=== PATIENT | male | born 1990 | race Caucasian/White ===

== ENCOUNTER 2023-01-06 14:20 | Inpatient (IN) | payer OTHER, SELFPAY ==
[2023-01-06 14:35] VITALS: BP 126/75; PULSE 64; TEMP 36.1; O2SAT 99
[2023-01-06 16:18] VITALS: BMI 33.9
[2023-01-06] MEDS: Nicotine Polacrilex Lozenge 4 MG LOZENGE BUCCAL ×2 (17:59→20:43)
--- NOTE | 2023-01-06 18:01 | PC.ADMIT ---
Addendum entered by Sandra Salinas RN 01/06/23 18:12: Pt med rec is done. Original Note: Pt is a 32 year old male who presented to [facility] ED secondary to increased depression over the last 2 months. Pt is COVID negative, UTOX negative. 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 Pt has increased SI and has had a previous attempt by OD. Reports an IPLOC at [facility]. Pt reports his father by suicide when pt had finished nursing school. Pt reports when he is experiencing thoughts of SI they are usually caused by a snowball effect of his anxiety and depression increasing. Pt states when he has thoughts of SI it starts as thoughts of wanting to go to bed and not wake up and then as he sits and ruminates the thoughts become more intense like ideas to drive into a tree. Pt is looking to get medication adjustments as he feels his current regimen isn't working. Pt lives with his girlfriend and their daughter. Pt identifies family as an important reason not to by suicide. Pt is A+OX4. Pt vitals upon arrival are temp 97, Sp02 98% R.A, HR 64, BP 126/75. Pt denies Hi/AH/VH but reports passive SI. Pt has high anxiety and depression. Pt is polite, calm, and cooperative. Pt reports he can come to staff and he is safe on the unit. Provider notified, orders are placed. Monitor for safety and begin treatment plan.
[2023-01-06] MEDS: DULoxetine HCl 20 MG CAPSULE.DR PO (20:00)
[2023-01-06] MEDS: traZODone HCL 50 MG TABLET PO (20:00)
[2023-01-06] MEDS: hydrOXYzine HCL 25 MG TABLET PO (20:43)
[2023-01-07 07:00] VITALS: BMI 32.1
[2023-01-07] MEDS: DULoxetine HCl 20 MG CAPSULE.DR PO (08:55)
[2023-01-07] MEDS: Cholecalciferol (Vitamin D3) 10 MCG TABLET 20 MCG PO (08:55)
[2023-01-07 09:03] VITALS: BP 125/81; PULSE 93; RESP 18; O2SAT 99
[2023-01-07] MEDS: Nicotine Polacrilex Lozenge 4 MG LOZENGE BUCCAL ×4 (09:03→19:14)
[2023-01-07 09:44] LABS: Cholesterol 179 mg/dL; HDL Cholesterol 35 mg/dL; LDL Cholesterol Calculated 99 mg/dl; Magnesium 2.2 mg/dL (1.6-2.6); Triglycerides 229 mg/dL
[2023-01-07 09:48] LABS: Free T4 (Free Thyroxine) 0.83 ng/dL (0.71-1.85); Thyroid Stimulating Hormone 3.21 uIU/mL (0.32-4.0)
[2023-01-07 09:57] LABS: Folate 8.3 ng/mL (> or = 4.0); Vitamin B12 558 pg/mL (200-900)
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
[2023-01-07 10:42] LABS: Estimated Average Glucose 105 mg/dL; Hemoglobin A1C 149.6057 umol/L; Hemoglobin A1c % 5.3 %
--- NOTE | 2023-01-07 11:13 | HO.PM.IMCN ---
History of Present Illness Data of Consult Service Date: 01/07/23 Primary Care Provider: Nonstaff Physician FELIPE Reason for consult: Admission H&P Pt is a 32-year-old male with a PMH significant for?chronic eustachian tube dysfunction, right hip labrum repair surgery, anxiety, and depression who is admitted to [facility] psychiatry unit for increasing depression past 2 months with increasing SI a previous suicide attempt by overdosing. Medical consult for admission H&P. ?Patient states that he has had chronic ear problems since a child when he had multiple ear tube placements for eustachian tube dysfunction. Patient has had since then had occasional ear pain and muffled hearing, no worse lately than the past few years. Pt also states has occasional chest pain/palpitations associated with anxiety. Pt has been to the ED multiple times for this pain, cardiac workup has always been negative. Pt has no chest pain at the moment. The patient currently denies any acute medical concerns at this time. No chest pain/pressure, palpitations. Denies shortness of breath. No fever, chills, nausea, vomiting, diarrhea. Labs reviewed, unremarkable. Review of Systems Review of Systems: Chronic ear problems/muffled hearing Denies chest pain/pressure, palpitations No shortness of breath Denies fever, chills, nausea, vomiting, diarrhea, abdominal pain Yes all other systems are reviewed and are negative [facility] Social History Household Members Other:: girlfriend and daughter. Owns duplex and has someone living there. Housing: House Do you presently have visiting nurse or other home services: No Patient Tobacco Use Status: Current everyday Tobacco user Tobacco use type: Cigarette Cigarette Packs Per Day: 1 Cigarettes Per Day: 20.0 Smoked in Last 30 Days: Yes e-Cigarette/Vaping Use: Never Used Patient Interested in Nicotine Replacement: Yes (4 mg lozenge) Patient Given Instructions on How to Stop Smoking: No Second Hand Smoke Exposure: No Use of substances other than those prescribed or required for medical reasons: No Currently Displaying Signs/Symptoms of Drug Intoxication Withdrawal: No Have you been hit, kicked, punched, or otherwise hurt by someone within the past year? If so, by whom?: No Do you feel safe in your current relationship?: Yes Is there a partner from a previous relationship who is making you feel unsafe now?: No Are you made to feel afraid or neglected: No Advance Directives: No Advance Directives Information Provided: Yes Suicidal Behavior: History of suicide attemps Current/Past Psychiatric Disorders: Mood disorder Rosado Symptoms: Anxiety and Hopelessness Family History: Attempts and Suicide Access to Firearms: No Do you have thoughts of harming others: None Do you have a plan to hurt others: No Plan Recently lost weight without trying: No Nutrition Risks: No Nutritional Risk Poor oral hygiene: No Meds Allergies Allergy/AdvReac Type Severity Reaction Status Date / Time No Known Allergies Allergy Verified 01/06/23 14:12 Active Medications: Current Medications Acetaminophen (Acetaminophen 325 Mg Tablet) 650 mg PO Q6H PRN PRN Reason: Headache/Pain Mild Scale (1-3) Al Hydroxide/Mg Hydroxide (Magnesium Hydrox/Alum Hydrox 30 Ml Oral.Susp) 30 ml PO Q6H PRN PRN Reason: Heartburn/Nausea Duloxetine HCl (Duloxetine Hcl 20 Mg Capsule.Dr) 20 mg PO BID [facility] Last Admin: 01/07/23 08:55 Dose: 20 mg Gabapentin (Gabapentin 100 Mg Capsule) 200 mg PO TID PRN PRN Reason: anxiety Hydroxyzine HCl (Hydroxyzine Hcl 25 Mg Tablet) 25 mg PO Q6H PRN PRN Reason: Anxiety Last Admin: 01/06/23 20:43 Dose: 25 mg Ibuprofen (Ibuprofen 800 Mg Tablet) 800 mg PO Q8H PRN PRN Reason: Pain, Mild (Pain Scale 1-3) Magnesium Hydroxide (Milk Of Magnesia 30 Ml Oral.Susp) 30 ml PO DAILY PRN PRN Reason: Constipation Nicotine Polacrilex (Nicotine Polacrilex Lozenge 4 Mg Lozenge) 4 mg BUCCAL Q2H PRN PRN Reason: Nicotine Cravings Last Admin: 01/07/23 09:03 Dose: 4 mg Trazodone HCl (Trazodone Hcl 50 Mg Tablet) 50 mg PO BEDTIME MRX1 PRN PRN Reason: Insomnia Last Admin: 01/06/23 20:00 Dose: 50 mg Vitamin D (Cholecalciferol (Vitamin D3) 10 Mcg Tablet) 20 mcg PO DAILY [facility] Last Admin: 01/07/23 08:55 Dose: 20 mcg Home Medications Medication Instructions Recorded Confirmed Last Taken Type duloxetine 20 mg capsule,delayed 20 mg PO BID 01/06/23 01/06/23 Unknown History release duloxetine 20 mg capsule,delayed 20 mg PO BID 01/06/23 01/06/23 Unknown History release gabapentin 100 mg capsule 100 mg PO TID PRN Anxiety 01/06/23 01/06/23 Unknown History gabapentin 100 mg capsule 100 mg PO TID PRN Anxiety 01/06/23 01/06/23 Unknown History Physical Exam Vital Signs and Narrative: Vital Signs: Last Vital Signs Temp 97 F 01/06/23 14:35 Pulse 93 01/07/23 09:03 Resp 18 01/07/23 09:03 BP 125/81 01/07/23 09:03 Pulse Ox 99 01/07/23 09:03 O2 Del Method Room Air 01/07/23 09:03 BMI result Body Mass Index 32.1 Constitutional: Alert, in no acute distress. Mental Status: Oriented to person, place and time. Eyes: Pupils are equal, round, and reactive to light. Ear, Nose, and Throat: Oropharynx clear, mucous membranes moist. Ears and nose without deformities. Trachea midline. Respiratory: Clear to auscultation bilaterally. No wheezing, rales, or rhonchi. Cardiovascular: S1, S2 regular. No murmurs, rubs, or gallops. Gastrointestinal: Abdomen soft, non-tender, non-distended. Normal bowel sounds. Neurologic: Cranial nerves II-XII are grossly intact bilaterally. No focal neurological deficits. Moves all extremities spontaneously. Skin: No rashes or lesions noted. Musculoskeletal: No cyanosis or clubbing. Extremities: No edema. Psychiatric: Normal mood and affect. Results Labs Labs: Laboratory Results - last 24 hr 01/07/23 01/07/23 01/07/23 08:31 08:31 08:31 Estimat Average Glucose 105 Hemoglobin A1c % 5.3 Magnesium 2.2 Triglycerides 229 Cholesterol 179 LDL Cholesterol, Calc 99 HDL Cholesterol 35 Vitamin B12 558 Folate 8.3 TSH 3.21 Free T4 0.83 Assessment and Plan (1) Routine history and physical examination of adult: Status: Acute Plan Pt is a 32-year-old male with a PMH significant for?chronic eustachian tube dysfunction, right hip labrum repair surgery, anxiety, and depression who is admitted to psychiatry unit for increasing depression past 2 months with increasing SI a previous suicide attempt by overdosing. Medical consult for admission H&P. ? Mood disorder Plan as per psychiatry Chronic eustachian tube dysfunction/muffled hearing Has been stable for years now Patient should follow-up with PCP and ENT outpatient for continued care Thank you for allowing us to participate in the care of this patient. Signing off at this time. Please let us know if there are any acute complaints or questions. Time Spent With Patient Time: Total time managing care of this patient today ____ minutes.
[2023-01-07] MEDS: Ibuprofen 800 MG TABLET PO (11:46)
[2023-01-07] MEDS: FLUoxetine HCl 10 MG CAPSULE PO (13:18)
[2023-01-07 18:00] VITALS: BP 122/75; PULSE 78; RESP 16; TEMP 36.1; O2SAT 98
[2023-01-07] MEDS: traZODone HCL 50 MG TABLET PO (21:26)
--- NOTE | 2023-01-08 | ECG_ITS ---
Test Reason : tachycardia Blood Pressure : / mmHG Vent. Rate : 095 BPM Atrial Rate : 095 BPM P-R Int : 168 ms QRS Dur : 108 ms QT Int : 330 ms P-R-T Axes : 053 001 053 degrees QTc Int : 414 ms Normal sinus rhythm Normal ECG No previous ECGs available Referred By: Venus Correa Electronically Signed By:NICOLETTE HERNANDEZ
[2023-01-08] MEDS: Cholecalciferol (Vitamin D3) 10 MCG TABLET 20 MCG PO (08:08)
[2023-01-08] MEDS: FLUoxetine HCl 10 MG CAPSULE PO (08:08)
[2023-01-08] MEDS: DULoxetine HCl 20 MG CAPSULE.DR PO (08:09)
[2023-01-08 08:12] VITALS: BP 156/106; PULSE 82; RESP 18; TEMP 36.4; O2SAT 99
[2023-01-08] MEDS: Nicotine Polacrilex Lozenge 4 MG LOZENGE BUCCAL ×4 (08:30→18:04)
[2023-01-08] MEDS: cloNIDine HCL 0.1 MG TABLET PO ×2 (08:59→19:46)
[2023-01-08 09:01] VITALS: BP 123/62; PULSE 133
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
[2023-01-08 09:55] VITALS: BP 123/82; PULSE 118
[2023-01-08 10:00] VITALS: BP 151/118; PULSE 125
[2023-01-08 17:54] VITALS: BP 128/82; PULSE 113; RESP 16; TEMP 35.9; O2SAT 98
[2023-01-08] MEDS: traZODone HCL 50 MG TABLET PO (19:46)
[2023-01-08] MEDS: Ibuprofen 800 MG TABLET PO (20:32)
[2023-01-09] MEDS: Nicotine Polacrilex Lozenge 4 MG LOZENGE BUCCAL ×5 (04:23→18:37)
[2023-01-09] MEDS: cloNIDine HCL 0.1 MG TABLET PO ×2 (08:07→20:00)
[2023-01-09] MEDS: Cholecalciferol (Vitamin D3) 10 MCG TABLET 20 MCG PO (08:07)
[2023-01-09] MEDS: FLUoxetine HCl 20 MG CAPSULE PO (08:07)
[2023-01-09 08:15] VITALS: BP 128/64; PULSE 60; RESP 16; TEMP 36; O2SAT 99
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
[2023-01-09] MEDS: Acetaminophen 325 MG TABLET 650 MG PO (17:13)
[2023-01-09 19:58] VITALS: BP 120/72; PULSE 108; TEMP 36.6; O2SAT 98
[2023-01-09] MEDS: hydrOXYzine HCL 25 MG TABLET PO (21:54)
[2023-01-09] MEDS: traZODone HCL 50 MG TABLET PO (21:54)
[2023-01-10] MEDS: Cholecalciferol (Vitamin D3) 10 MCG TABLET 20 MCG PO (08:57)
[2023-01-10] MEDS: FLUoxetine HCl 20 MG CAPSULE PO (08:57)
[2023-01-10] MEDS: cloNIDine HCL 0.1 MG TABLET PO ×2 (08:57→20:18)
[2023-01-10 09:00] VITALS: BP 131/72; PULSE 109; RESP 18; TEMP 36.6; O2SAT 97
[2023-01-10] MEDS: Nicotine Polacrilex Lozenge 4 MG LOZENGE BUCCAL ×2 (09:49→17:27)
[2023-01-10] MEDS: hydrOXYzine HCL 25 MG TABLET PO ×2 (11:44→21:21)
[2023-01-10] MEDS: Acetaminophen 325 MG TABLET 650 MG PO (17:27)
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
[2023-01-10 20:15] VITALS: BP 138/70; PULSE 90; TEMP 36.4; O2SAT 99
[2023-01-10] MEDS: traZODone HCL 50 MG TABLET PO ×2 (21:21→22:24)
[2023-01-11 08:45] VITALS: BP 128/68; PULSE 62; RESP 16; TEMP 36.4
[2023-01-11] MEDS: cloNIDine HCL 0.1 MG TABLET PO ×2 (08:47→22:43)
[2023-01-11] MEDS: FLUoxetine HCl 20 MG CAPSULE PO ×2 (08:47→14:40)
[2023-01-11] MEDS: Cholecalciferol (Vitamin D3) 10 MCG TABLET 20 MCG PO (08:47)
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
[2023-01-11] MEDS: Nicotine Polacrilex Lozenge 4 MG LOZENGE BUCCAL ×4 (09:37→21:30)
[2023-01-11 18:00] VITALS: BP 141/93; PULSE 90; RESP 20; TEMP 36.6; O2SAT 96
[2023-01-11] MEDS: traZODone HCL 50 MG TABLET PO (22:43)
[2023-01-11] MEDS: hydrOXYzine HCL 25 MG TABLET PO (22:44)
[2023-01-12 07:30] VITALS: PULSE 73; RESP 16; TEMP 35.8; O2SAT 99
[2023-01-12] MEDS: FLUoxetine HCl 20 MG CAPSULE 40 MG PO (08:45)
[2023-01-12] MEDS: cloNIDine HCL 0.1 MG TABLET PO ×2 (08:45→22:36)
[2023-01-12] MEDS: Cholecalciferol (Vitamin D3) 10 MCG TABLET 20 MCG PO (08:45)
[2023-01-12] MEDS: Nicotine Polacrilex Lozenge 4 MG LOZENGE BUCCAL ×4 (09:02→20:26)
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
[2023-01-12 22:30] VITALS: BP 107/74; PULSE 76; TEMP 35.8; O2SAT 98
[2023-01-12] MEDS: hydrOXYzine HCL 25 MG TABLET PO (22:36)
[2023-01-12] MEDS: traZODone HCL 50 MG TABLET PO (22:36)
[2023-01-13 08:15] VITALS: BP 128/65; PULSE 72; RESP 18; TEMP 36.3; O2SAT 98
[2023-01-13] MEDS: hydrOXYzine HCL 25 MG TABLET PO ×2 (08:17→21:47)
[2023-01-13] MEDS: cloNIDine HCL 0.1 MG TABLET PO ×2 (08:18→20:25)
[2023-01-13] MEDS: Cholecalciferol (Vitamin D3) 10 MCG TABLET 20 MCG PO (08:18)
[2023-01-13] MEDS: FLUoxetine HCl 20 MG CAPSULE 40 MG PO (08:18)
[2023-01-13] MEDS: Nicotine Polacrilex Lozenge 4 MG LOZENGE BUCCAL ×5 (09:19→21:48)
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
[2023-01-13] MEDS: Loratadine 10 MG TABLET PO (11:42)
[2023-01-13 20:14] VITALS: BP 120/69; PULSE 95; TEMP 36.2
[2023-01-13] MEDS: traZODone HCL 50 MG TABLET PO (21:47)
[2023-01-14 08:30] VITALS: BP 139/82; PULSE 79; RESP 18; TEMP 36.4; O2SAT 99
[2023-01-14] MEDS: Nicotine Polacrilex Lozenge 4 MG LOZENGE BUCCAL ×4 (08:31→19:43)
[2023-01-14] MEDS: FLUoxetine HCl 20 MG CAPSULE 60 MG PO (08:31)
[2023-01-14] MEDS: Cholecalciferol (Vitamin D3) 10 MCG TABLET 20 MCG PO (08:32)
[2023-01-14] MEDS: Loratadine 10 MG TABLET PO (08:32)
[2023-01-14] MEDS: cloNIDine HCL 0.1 MG TABLET PO ×2 (08:32→21:53)
[2023-01-14 08:44] VITALS: BMI 32.9
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
[2023-01-14] MEDS: Ibuprofen 800 MG TABLET PO (16:22)
[2023-01-14 16:26] VITALS: BP 124/70; PULSE 90; TEMP 36.7; O2SAT 98
[2023-01-14] MEDS: traZODone HCL 50 MG TABLET PO (21:53)
[2023-01-14] MEDS: hydrOXYzine HCL 25 MG TABLET PO (21:53)
[2023-01-15] MEDS: Loratadine 10 MG TABLET PO (08:15)
[2023-01-15] MEDS: Cholecalciferol (Vitamin D3) 10 MCG TABLET 20 MCG PO (08:15)
[2023-01-15] MEDS: FLUoxetine HCl 20 MG CAPSULE 60 MG PO (08:16)
[2023-01-15] MEDS: cloNIDine HCL 0.1 MG TABLET PO (08:16)
[2023-01-15] MEDS: Nicotine Polacrilex Lozenge 4 MG LOZENGE BUCCAL (08:31)
[2023-01-15 08:40] VITALS: BP 105/69; PULSE 74; RESP 18; O2SAT 97
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
== END 2023-01-15 11:23 | disposition home or self-care (01) | DRG 751 ==
PROVIDERS: Clinical Nurse Specialist Psychiatric/Mental Health, Adult; Admitting Provider Psychiatry & Neurology Psychiatry; Visit Provider Psychiatry & Neurology Psychiatry
DX: F33.2 Major depressive disorder, recurrent severe without psychotic features (principal); R45.851 Suicidal ideations; F41.1 Generalized anxiety disorder; F43.10 Post-traumatic stress disorder, unspecified; Z79.899 Other long term (current) drug therapy
CPT/HCPCS: 36415; 80061; 82607; 82746; 83036; 83735; 84439; 84443; 93005

== ENCOUNTER → 2023-01-06 14:20 | Outpatient (BNV) | payer OTHER, SELFPAY | PROVIDERS: Admitting Provider Psychiatry & Neurology Psychiatry; Visit Provider Psychiatry & Neurology Psychiatry | DX: F33.2 Major depressive disorder, recurrent severe without psychotic features (principal); F41.1 Generalized anxiety disorder; F43.11 Post-traumatic stress disorder, acute | CPT/HCPCS: 90792; 99231; 99232; 99238 ==